=== PATIENT | male | born 1990 | race African-American/Black ===

== ENCOUNTER 2016-10-05 16:58 | Emergency (ER) | payer BC ==
[~2016-10-05 16:58] MED LIST: AMOX875 PO; FLUT50SP EACH NARE; PRED50 PO
[2016-10-05 17:01] VITALS: BP 137/69; PULSE 75; RESP 16; TEMP 98.8
--- NOTE | 2016-10-05 17:07 | PD ---
HPI Chief Complaint: GI Complaint Time Seen by Provider: 17:06 Travel History International Travel<30 days: No Contact w/Intl Traveler<30days: No Traveled to known affect area: No History of Present Illness HPI 25-year-old male came to the emergency room with history of right lower quadrant abdominal pain that has been ongoing for past 3 days. Patient says he' s been vomiting. No history of fever or chills. No history of diarrhea. Patient describes the pain as spasmodic in nature. Vital signs are completely stable. He had an umbilical hernia surgery done when he was a child but other than that no other abdominal surgeries. [facility] Past Medical History Narrative Medical List of his past medical, surgical, social and family history is reviewed from the nursing note. Respiratory: Yes (asthma) Social History Alcohol Use: Yes Tobacco Use: No Substance Use: No Allergies-Medications (Allergen,Severity, Reaction): Coded Allergies: No Known Allergies (Unverified , 10/05/16) Comments No known drug allergies. Reported Meds & Prescriptions Reported Meds & Active Scripts Active No Active Prescriptions or Reported Medications Narrative Medication List of his home medications reviewed from the nursing note. Review of Systems Except as stated in HPI: all other systems reviewed are Neg Physical Exam Narrative GENERAL: Awake, alert, mild distress SKIN: Focused skin assessment warm/dry. HEAD: Atraumatic. Normocephalic. EYES: Pupils equal and round. No scleral icterus. No injection or drainage. ENT: No nasal bleeding or discharge. Mucous membranes pink and moist. NECK: Trachea midline. No JVD. CARDIOVASCULAR: Regular rate and rhythm. No murmur appreciated. RESPIRATORY: No accessory muscle use. Clear to auscultation. Breath sounds equal bilaterally. GASTROINTESTINAL: Abdomen soft, right lower quadrant tenderness on deep palpation, nondistended, normal bowel sounds. Hepatic and splenic margins not palpable. MUSCULOSKELETAL: No obvious deformities. No clubbing. No cyanosis. No edema. NEUROLOGICAL: Awake and alert. No obvious cranial nerve deficits. Motor grossly within normal limits. Normal speech. PSYCHIATRIC: Appropriate mood and affect; insight and judgment normal. Data Data Last Documented VS Vital Signs Date Time Temp Pulse Resp B/P Pulse Ox O2 Delivery O2 Flow Rate FiO2 10/05/16 17:50 99 10/05/16 17:01 98.8 75 16 137/69 Orders Complete Blood Count With Diff (10/05/16 17:26) Comprehensive Metabolic Panel (10/05/16 17:26) Lipase (10/05/16 17:26) Urinalysis - C+S If Indicated (10/05/16:) Iv Access Insert/Monitor (10/05/16 17:) Ecg Monitoring (10/05/16:) Oximetry (10/05/16:) Sodium Chlor 0.9% 1000 Ml Inj (Ns 1000 M (10/05/16:) Sodium Chloride 0.9% Flush (Ns Flush) (10/05/16 17:30) Ketorolac Inj (Toradol Inj) (10/05/16 17:30) C-Reactive Protein (Crp) (10/05/16:) Ondansetron Inj (Zofran Inj) (10/05/16 17:30) Ct Abd/Pel W/O Iv Contrast (10/05/16 ) Labs Laboratory Tests Test 10/05/16 17:35 White Blood Count 6.8 TH/MM3 Red Blood Count 4.26 MIL/MM3 Hemoglobin 12.3 GM/DL Hematocrit 37.8 % Mean Corpuscular Volume 88.8 FL Mean Corpuscular Hemoglobin 28.8 PG Mean Corpuscular Hemoglobin 32.5 % Concent Red Cell Distribution Width 14.0 % Platelet Count 214 TH/MM3 Mean Platelet Volume 9.0 FL Neutrophils (%) (Auto) 69.3 % Lymphocytes (%) (Auto) 17.3 % Monocytes (%) (Auto) 10.6 % Eosinophils (%) (Auto) 2.3 % Basophils (%) (Auto) 0.5 % Neutrophils # (Auto) 4.7 TH/MM3 Lymphocytes # (Auto) 1.2 TH/MM3 Monocytes # (Auto) 0.7 TH/MM3 Eosinophils # (Auto) 0.2 TH/MM3 Basophils # (Auto) 0.0 TH/MM3 CBC Comment DIFF FINAL Differential Comment Urine Color YELLOW Urine Turbidity CLEAR Urine pH 7.0 Urine Specific [place] 1.016 Urine Protein NEG mg/dL Urine Glucose (UA) NEG mg/dL Urine Ketones NEG mg/dL Urine Occult Blood NEG Urine Nitrite NEG Urine Bilirubin NEG Urine Urobilinogen 2.0 MG/DL Urine Leukocyte Esterase TRACE Urine RBC 2 /hpf Urine WBC 3 /hpf Microscopic Urinalysis Comment CULT NOT INDICATED Sodium Level 137 MEQ/L Potassium Level 3.5 MEQ/L Chloride Level 104 MEQ/L Carbon Dioxide Level 28.0 MEQ/L Anion Gap 5 MEQ/L Blood Urea Nitrogen 8 MG/DL Creatinine 0.85 MG/DL Estimat Glomerular Filtration 134 ML/MIN Rate Random Glucose 97 MG/DL Calcium Level 8.3 MG/DL Total Bilirubin 0.2 MG/DL Aspartate Amino Transf 18 U/L (AST/SGOT) Alanine Aminotransferase 22 U/L (ALT/SGPT) Alkaline Phosphatase 89 U/L C-Reactive Protein 4.10 MG/DL Total Protein 7.1 GM/DL Albumin 3.7 GM/DL Lipase 68 U/L [facility] Medical Decision Making Medical Screen Exam Complete: Yes Emergency Medical Condition: Yes Medical Record Reviewed: Yes Differential Diagnosis Acute appendicitis, acute diverticulitis, mesenteric adenitis, terminal ileitis Narrative Course 6:08 PM I have ordered blood test for this patient including CRP. Based on the WBC count and CRP all decide whether to do a CT scan or not given the fact that this pain has been going on for past 3 days and vital signs are completely normal. My suspicion for acute appendicitis is quite low. 6:47 PM he CRP significantly elevated in spite of his CBC being normal.. I'll order a CT scan of the abdomen and pelvis. 7:[address] scan report reads as normal appearing abdomen and pelvis. Patient will be discharged home. Procedures EKG Prior to Arrival: No Diagnosis Primary Impression: Abdominal pain Qualified Code: R10.31 - Right lower quadrant abdominal pain Referrals: Primary Care Physician Additional Instructions: Take Tylenol/ibuprofen/Advil/Motrin [id number] for the pain. Follow-up with your primary care. Return to the ER if the condition worsens or any other new concerns. Med/Other Pt SpecificInfo: No Change to Meds Scripts No Active Prescriptions or Reported Meds Disposition: DISCHARGE HOME Condition: Stable Ga Lowry MD Oct 05, 2016 17:07
[2016-10-05] MEDS ORDERED: SODIUM CHLOR 0.9% 1000 ML INJ 1,000 ML IV SCH (17:26)
[2016-10-05] MEDS ORDERED: KETOROLAC TROMETHAMINE 30 MG/ML (IVP) VIAL IVP ONE (17:30)
[2016-10-05] MEDS ORDERED: SODIUM CHLORIDE 0.9% FLUSH 10 ML FLUSH IV FLUSH PRN (17:30)
[2016-10-05] MEDS ORDERED: ONDANSETRON HCL 4 MG/2 ML VIAL IV PUSH ONE (17:30)
[2016-10-05 17:50] VITALS: O2SAT 99
[2016-10-05 18:13] LABS: AUTOMATED NEUTROPHIL # 4.7 TH/MM3 (1.8-7.7); BASOPHIL % 0.5 % (0.0-2.0); EOSINOPHIL # 0.2 TH/MM3 (0-0.4); EOSINOPHIL % 2.3 % (0.0-4.0); HEMATOCRIT 37.8 % (39.0-51.0); HEMO FLAGS DIFF FINAL; LYMPH % 17.3 % (9.0-44.0); LYMPHOCYTE # 1.2 TH/MM3 (1.0-4.8); MEAN CELL VOLUME 88.8 FL (80.0-100.0); MEAN CORPUSCULAR HEMOGLOBIN 28.8 PG (27.0-34.0); MEAN CORPUSCULAR HGB CONC 32.5 % (32.0-36.0); MONO % 10.6 % (0.0-8.0); NEUT % 69.3 % (16.0-70.0); PLATELET COUNT 214 TH/MM3 (150-450); RED BLOOD COUNT 4.26 MIL/MM3 (4.50-5.90); WHITE BLOOD COUNT 6.8 TH/MM3 (4.0-11.0)
[2016-10-05 18:15] LABS: BLOOD, URINE NEG (NEG); GLUCOSE,URINE NEG (NEG); KETONE, URINE NEG (NEG); NITRITE,URINE NEG (NEG); URINE COLOR YELLOW (YELLW/STRAW)
[2016-10-05 18:16] LABS: COMMENT (UR) CULT NOT INDICATED; CULTURE IF INDICATED CULT NOT INDICATED
[2016-10-05 18:33] LABS: ANION GAP 5 MEQ/L (5-15); AST (GOT) 18 U/L (15-37); BLOOD UREA NITROGEN 8 MG/DL (7-18); CHLORIDE 104 MEQ/L (98-107); GLOMERULAR FILTRATION RATE 134 ML/MIN (>89); POTASSIUM 3.5 MEQ/L (3.5-5.1); SODIUM (NA) 137 MEQ/L (136-145)
[2016-10-05 18:35] LABS: ALT (GPT) 22 U/L (12-78)
[2016-10-05 18:37] LABS: ALKALINE PHOSPHATASE 89 U/L (45-117); TOTAL BILIRUBIN ADULT 0.2 MG/DL (0.2-1.0)
--- NOTE | 2016-10-05 19:28 | RADRPT ---
EXAM DATE/TIME: 10/05/2016 19:14 [facility] COMPARISON: No previous studies available for comparison. INDICATIONS : Lower abdomen pain, vomiting and constipation for two days. ORAL CONTRAST: No oral contrast ingested. RADIATION DOSE: 9.96 CTDIvol (mGy) MEDICAL HISTORY : None SURGICAL HISTORY : None. ENCOUNTER: Initial ACUITY: 2 days PAIN SCALE: 7/10 LOCATION: Bilateral lower quadrant TECHNIQUE: Volumetric scanning of the abdomen and pelvis was performed. Using automated exposure control and ad justment of the mA and/or kV according to patient size, radiation dose was kept as low as reasonably achievable to obtain optimal diagnostic quality images. DICOM format image data is available electro nically for review and comparison. FINDINGS: LOWER LUNGS: The visualized lower lungs are clear. LIVER: Homogeneous density without lesion. There is no dilation of the biliary tree. No calcified gallston es. SPLEEN: Normal size without lesion. PANCREAS: Within normal limits. KIDNEYS: Normal in size and shape. There is no mass, stone, or hydronephrosis. ADRENAL GLANDS: Within normal limits. VASCULAR: There is no aortic aneurysm. BOWEL/MESENTERY: The stomach, small bowel, and colon demonstrate no acute abnormality. There is no free intraperitone al air or fluid. ABDOMINAL WALL: Within normal limits. RETROPERITONEUM: There is no lymphadenopathy. BLADDER: No wall thickening or mass. REPRODUCTIVE: Within normal limits. INGUINAL: There is no lymphadenopathy or hernia. MUSCULOSKELETAL: Within normal limits for patient age. CONCLUSION: Normal examination. Walter Negrete MD on October 05, 2016 at 19:21 Board Certified Radiologist. This report was verified electronically.
== END 2016-10-05 20:43 | disposition home or self-care (01) ==
LOC: NEPD 16:58
DX: R10.31 Right lower quadrant pain (principal); R11.10 Vomiting, unspecified; Z87.09 Personal history of other diseases of the respiratory system
CPT/HCPCS: 74176; 80053; 81001; 83690; 85025; 86140; 96361; 96374; 96375; 99285; J1885; J2405; J7030

== ENCOUNTER → 2017-04-23 | Outpatient (CLI) | payer BC ==
[2017-04-24 15:44] LABS: APPEARANCE Normal; MIDPIECE ABNORMAL 9.5 %; MOTILE/EJACULATE 11.9 x10(6) (>=9.0); MOTILE/mL 8.5 x10(6) (>=6.0); MOTILITY 24 % (>=40); SEMEN VOLUME 1.4 mL (>=1.5); SPERM/ML 35.5 x10(6) (>=15.0); TAIL ABNORMAL 57.5 %
== END ==
LOC: CLAB 13:11
DX: Z31.41 Encounter for fertility testing (principal)
CPT/HCPCS: 89322

== ENCOUNTER 2017-06-09 18:20 | Emergency (ER) | payer SELFPAY ==
[2017-06-09 18:41] VITALS: BP 110/75; PULSE 65; RESP 18; TEMP 98.2; O2SAT 100
--- NOTE | 2017-06-09 20:42 | PD ---
HPI Chief Complaint: Exposure to Blood/Body Fluids Time Seen by Provider: 18:41 Travel History International Travel<30 days: No Contact w/Intl Traveler<30days: No Traveled to known affect area: No History of Present Illness HPI 26-year-old male with no significant medical history presents emergency department for evaluation of a needlestick to his finger. Patient was taken out the trash when he picked up another bag and was stuck with a hypodermic needle. It was from his neighbors house. He went and spoke with them. She is an elderly woman who is diabetic. States he did not ask about HIV or hepatitis C. He is up-to-date on his tetanus vaccination. He is uncertain about his hepatitis B series. Denies any pain. Has no other immunocompromise state that is where. PFSH Past Medical History Medical History: Denies Significant Hx Respiratory: Yes (asthma) Social History Alcohol Use: Yes Tobacco Use: Yes Substance Use: No Allergies-Medications (Allergen,Severity, Reaction): Coded Allergies: No Known Allergies (Unverified , 10/05/16) Reported Meds & Prescriptions Reported Meds & Active Scripts Active No Active Prescriptions or Reported Medications Review of Systems Except as stated in HPI: all other systems reviewed are Neg Physical Exam Narrative Well-nourished male patient in no acute distress. Even respirations. Normal heart rate. No obvious deformities. Speaks clearly moves all extremities freely. Data Data Last Documented VS Vital Signs Date Time Temp Pulse Resp B/P (MAP) Pulse Ox O2 Delivery O2 Flow Rate FiO2 318 18:41 98.2 65 18 110/75 (87) 100 MDM Medical Decision Making Medical Screen Exam Complete: Yes Emergency Medical Condition: Yes Medical Record Reviewed: Yes Differential Diagnosis Puncture wound versus exposure high-risk versus low risk versus normal exam Narrative Course 26-year-old male presents to emergency department for evaluation following a needle stick that occurred in his been prescribed which. Patient appears nontoxic. Her to that placement, patient chooses to leave AMA: The risks of leaving against medical advice without further evaluation treatment were discussed with the patient. These risks include cardiac dysfunction, cardiac dysrhythmia, possible heart attack, possible stroke or . The patient indicated understanding of these risks and appeared to have the capacity to make this decision. Diagnosis Primary Impression: Needlestick injury of finger Scripts No Active Prescriptions or Reported Meds Disposition: 07 AGAINST MEDICAL ADVICE Condition: Stable Pino,Lauren WATCH CASER Jun 09, 2017 20:42
== END 2017-06-09 20:05 | disposition left against medical advice (07) ==
LOC: NED 18:20
DX: S61.239A Puncture wound without foreign body of unspecified finger without damage to nail, initial encounter (principal); W46.1XXA Contact with contaminated hypodermic needle, initial encounter; Z72.0 Tobacco use; Z53.29 Procedure and treatment not carried out because of patient's decision for other reasons
CPT/HCPCS: 99281

== ENCOUNTER 2017-06-27 13:01 | Emergency (ER) | payer SELFPAY ==
[~2017-06-27] VITALS: Ht 172.7 cm; Wt 75.0 kg
[2017-06-27 13:16] VITALS: BP 140/61; PULSE 80; RESP 18; TEMP 98.5; O2SAT 99
== END 2017-06-27 18:00 | disposition left against medical advice (07) ==
LOC: NED 17:55
DX: R10.9 Unspecified abdominal pain (principal); Z53.21 Procedure and treatment not carried out due to patient leaving prior to being seen by health care provider
CPT/HCPCS: 99281

== ENCOUNTER 2017-06-30 11:12 | Emergency (ER) | payer BC ==
[~2017-06-30] VITALS: Ht 172.7 cm; Wt 74.0 kg
[2017-06-30] MEDS ORDERED: IOHEXOL 350 MG/ML 10 ML VIAL (for RAD DIAG) IVCONTRAST ONE (11:13)
[2017-06-30 12:05] VITALS: BP 122/59; PULSE 68; RESP 20; TEMP 98.7; O2SAT 98
[2017-06-30 12:35] LABS: AUTOMATED NEUTROPHIL # 3.5 TH/MM3 (1.8-7.7); BASOPHIL % 0.5 % (0.0-2.0); EOSINOPHIL # 0.2 TH/MM3 (0-0.4); EOSINOPHIL % 3.8 % (0.0-4.0); HEMATOCRIT 37.8 % (39.0-51.0); HEMOGLOBIN 12.9 GM/DL (13.0-17.0); LYMPH % 24.6 % (9.0-44.0); LYMPHOCYTE # 1.4 TH/MM3 (1.0-4.8); MEAN CELL VOLUME 88.5 FL (80.0-100.0); MEAN CORPUSCULAR HEMOGLOBIN 30.1 PG (27.0-34.0); MONO % 8.4 % (0.0-8.0); MONOCYTE # 0.5 TH/MM3 (0-0.9); NEUT % 62.7 % (16.0-70.0); PLATELET COUNT 306 TH/MM3 (150-450); RED BLOOD COUNT 4.27 MIL/MM3 (4.50-5.90); RED CELL DISTRIBUTION WIDTH 13.3 % (11.6-17.2); WHITE BLOOD COUNT 5.6 TH/MM3 (4.0-11.0)
[2017-06-30 12:44] LABS: BILIRUBIN, URINE NEG (NEG); BLOOD, URINE TRACE (NEG); GLUCOSE,URINE NEG (NEG); KETONE, URINE NEG (NEG); MUCUS URINE FEW /lpf (OCC); NITRITE,URINE NEG (NEG); SQUAMOUS EPITHELIAL CELL URINE <1 /hpf (0-5); URINE COLOR YELLOW (YELLW/STRAW); URINE LEUKOCYTE ESTERASE NEG (NEG)
[2017-06-30 13:01] LABS: ALKALINE PHOSPHATASE 91 U/L (45-117); ALT (GPT) 24 U/L (12-78); TOTAL BILIRUBIN ADULT 0.2 MG/DL (0.2-1.0)
[2017-06-30 13:03] LABS: ALBUMIN 3.8 GM/DL (3.4-5.0); AST (GOT) 9 U/L (15-37); BICARBONATE 28.2 MEQ/L (21.0-32.0); BLOOD UREA NITROGEN 9 MG/DL (7-18); CALCIUM 8.9 MG/DL (8.5-10.1); CHLORIDE 104 MEQ/L (98-107); GLOMERULAR FILTRATION RATE 143 ML/MIN (>89); GLUCOSE,RANDOM 82 MG/DL (74-106); SODIUM (NA) 139 MEQ/L (136-145)
[2017-06-30] MEDS ORDERED: ONDANSETRON HCL 4 MG/2 ML VIAL IV PUSH ONE (14:00)
[2017-06-30] MEDS ORDERED: SODIUM CHLOR 0.9% 1000 ML INJ 1,000 ML IV ONE (14:00)
[2017-06-30] MEDS ORDERED: KETOROLAC TROMETHAMINE 30 MG/ML (IVP) VIAL IV PUSH ONE (14:00)
--- NOTE | 2017-06-30 14:02 | PD ---
HPI Chief Complaint: Abdominal Pain Time Seen by Provider: 13:54 Travel History International Travel<30 days: No Contact w/Intl Traveler<30days: No Traveled to known affect area: No History of Present Illness HPI Patient is a 26-year-old male with a week's history of nausea vomiting culminating in some epigastric abdominal pain. Patient states it is all very mild but it is not getting any better. He is stating that he is able to tolerate clear liquids but is still trying to eat solid foods and this seems to upset his stomach more. Denies any chest pain shortness of breath denies any diarrhea or blood in the stool or blood in the emesis. He denies any alcohol ingestion. Symptoms are mild, for the past week, constant, worsened with solid food. PFSH Past Medical History Respiratory: Yes (asthma) Social History Alcohol Use: Yes Tobacco Use: Yes Substance Use: No Allergies-Medications (Allergen,Severity, Reaction): Coded Allergies: No Known Allergies (Unverified Allergy, Unknown, 06/30/17) Reported Meds & Prescriptions Reported Meds & Active Scripts Active Bentyl (Dicyclomine HCl) 10 Mg Cap 10 Mg PO TID PRN Zofran (Ondansetron HCl) 4 Mg Tab 4 Mg PO Q6HR PRN Review of Systems Except as stated in HPI: all other systems reviewed are Neg Physical Exam Narrative GENERAL: Well-developed well-nourished in no obvious distress. Appears quite well. SKIN: Focused skin assessment warm/dry. HEAD: Atraumatic. Normocephalic. EYES: Pupils equal and round. No scleral icterus. No injection or drainage. ENT: No nasal bleeding or discharge. Mucous membranes pink and moist. NECK: Trachea midline. No JVD. CARDIOVASCULAR: Regular rate and rhythm. No murmur appreciated. RESPIRATORY: No accessory muscle use. Clear to auscultation. Breath sounds equal bilaterally. GASTROINTESTINAL: Abdomen soft, non-tender, nondistended. Hepatic and splenic margins not palpable. No rebound no percussive tenderness MUSCULOSKELETAL: No obvious deformities. No clubbing. No cyanosis. No edema. NEUROLOGICAL: Awake and alert. No obvious cranial nerve deficits. Motor grossly within normal limits. Normal speech. PSYCHIATRIC: Appropriate mood and affect; insight and judgment normal. Data Data Last Documented VS Vital Signs Date Time Temp Pulse Resp B/P (MAP) Pulse Ox O2 Delivery O2 Flow Rate FiO2 06/30/17 16:42 77 17 134/78 (96) 100 06/30/17 14:09 Room Air 06/30/17 12:05 98.7 Orders Orders Complete Blood Count With Diff (06/30/17 12:06) Comprehensive Metabolic Panel (06/30/17 12:06) Urinalysis - C+S If Indicated (06/30/17 12:06) Iv Access Insert/Monitor (06/30/17 12:06) Oxygen Administration (06/30/17 12:06) Oximetry (06/30/17 12:06) Lipase (06/30/17 12:06) Ct Abd/Pel W Iv Contrast(Rout) (06/30/17 ) Sodium Chlor 0.9% 1000 Ml Inj (Ns 1000 M (06/30/17 14:00) Ketorolac Inj (Toradol Inj) (06/30/17 14:00) Ondansetron Inj (Zofran Inj) (06/30/17 14:00) Iohexol 350 Inj (Omnipaque 350 Inj) (06/30/17 11:13) Ed Discharge Order (06/30/17 16:30) Labs Laboratory Tests Test 06/30/17 12:15 White Blood Count 5.6 TH/MM3 Red Blood Count 4.27 MIL/MM3 Hemoglobin 12.9 GM/DL Hematocrit 37.8 % Mean Corpuscular Volume 88.5 FL Mean Corpuscular Hemoglobin 30.1 PG Mean Corpuscular Hemoglobin Concent 34.0 % Red Cell Distribution Width 13.3 % Platelet Count 306 TH/MM3 Mean Platelet Volume 8.0 FL Neutrophils (%) (Auto) 62.7 % Lymphocytes (%) (Auto) 24.6 % Monocytes (%) (Auto) 8.4 % Eosinophils (%) (Auto) 3.8 % Basophils (%) (Auto) 0.5 % Neutrophils # (Auto) 3.5 TH/MM3 Lymphocytes # (Auto) 1.4 TH/MM3 Monocytes # (Auto) 0.5 TH/MM3 Eosinophils # (Auto) 0.2 TH/MM3 Basophils # (Auto) 0.0 TH/MM3 CBC Comment DIFF FINAL Differential Comment Urine Color YELLOW Urine Turbidity CLEAR Urine pH 6.0 Urine Specific [place] 1.020 Urine Protein NEG mg/dL Urine Glucose (UA) NEG mg/dL Urine Ketones NEG mg/dL Urine Occult Blood TRACE Urine Nitrite NEG Urine Bilirubin NEG Urine Urobilinogen 2.0 MG/DL Urine Leukocyte Esterase NEG Urine RBC 1 /hpf Urine WBC 3 /hpf Urine Squamous Epithelial Cells <1 /hpf Urine Mucus FEW /lpf Microscopic Urinalysis Comment CULT NOT INDICATED Blood Urea Nitrogen 9 MG/DL Creatinine 0.80 MG/DL Random Glucose 82 MG/DL Total Protein 8.0 GM/DL Albumin 3.8 GM/DL Calcium Level 8.9 MG/DL Alkaline Phosphatase 91 U/L Aspartate Amino Transf (AST/SGOT) 9 U/L Alanine Aminotransferase (ALT/SGPT) 24 U/L Total Bilirubin 0.2 MG/DL Sodium Level 139 MEQ/L Potassium Level 4.0 MEQ/L Chloride Level 104 MEQ/L Carbon Dioxide Level 28.2 MEQ/L Anion Gap 7 MEQ/L Estimat Glomerular Filtration Rate 143 ML/MIN Lipase 1791 U/L MDM Medical Decision Making Medical Screen Exam Complete: Yes Emergency Medical Condition: Yes Differential Diagnosis Pancreatitis, gastritis, gastroenteritis, cholecystitis, acute abdomen highly unlikely. Narrative Course Patient was roomed in the emergency department, his labs are significant for an elevated lipase at 1791. Otherwise his chemistry and hematology are fairly unremarkable. UA negative. I discussed with him the elevated lipase and recommended for him for CAT scan to exclude secondary causes. He appears quite well and has been tolerating p.o. liquids at home and if the CT is negative can be discharged safely in my opinion. Last 24 hours Impressions Abdomen/Pelvis CT 06/30/17 0000 Signed Impressions: Service Date/Time: Friday, June 30, 2017 15:45 - CONCLUSION: 1. Nonspecific , nonobstructive bowel gas pattern which may represent gastroenteritis and/or ileus. No oral contrast was given. 2. Apparent normal appendix. 3. Unremarkable gallbladder. Ronaldo Scott MD Discussed with the patient the need for clear liquid diet for the next 36 hours followed by BRAT diet followed by introduction of solid food at a slow pace. I discussed with him that he needs to follow-up with primary care physician for additional checkup and discussed with him return to ED criteria abstinence from alcohol. He verbalized understanding and agreement. He is stable for discharge at this time. Diagnosis Primary Impression: Pancreatitis Med/Other Pt SpecificInfo: Prescription(s) given Scripts Dicyclomine (Bentyl) 10 Mg Cap 10 MG PO TID Y for ABDOMINAL CRAMPING, #20 CAP 0 Refills Prov: Aldair Lora MD 06/30/17 Ondansetron (Zofran) 4 Mg Tab 4 MG PO Q6HR Y for NAUSEA OR VOMITING, #20 TAB 0 Refills Prov: Aldair Lora MD 06/30/17 Disposition: 01 DISCHARGE HOME Condition: Stable Aldair Lora MD Jun 30, 2017 14:02
[2017-06-30 14:09] VITALS: O2SAT 100
--- NOTE | 2017-06-30 16:00 | RADRPT ---
EXAM DATE/TIME: 06/30/2017 15:45 [facility] COMPARISON: No previous studies available for comparison. INDICATIONS : Patient complains of epigastric pain one week. IV CONTRAST: 95 cc Omnipaque 350 (iohexol) IV ORAL CONTRAST: No oral contrast ingested. RADIATION DOSE: 6.64 CTDIvol (mGy) MEDICAL HISTORY : None SURGICAL HISTORY : None. ENCOUNTER: Initial ACUITY: 1 week PAIN SCALE: 7/10 LOCATION: upper quadrant abdomen TECHNIQUE: Volumetric scanning of the abdomen and pelvis was performed. Using automated exposure control and ad justment of the mA and/or kV according to patient size, radiation dose was kept as low as reasonably achievable to obtain optimal diagnostic quality images. DICOM format image data is available electro nically for review and comparison. FINDINGS: LOWER LUNGS: The visualized lower lungs are clear. LIVER: Homogeneous density without lesion. There is no dilation of the biliary tree. No calcified gallston es. SPLEEN: Normal size without lesion. PANCREAS: Within normal limits. KIDNEYS: Normal in size and shape. There is no mass, stone or hydronephrosis. ADRENAL GLANDS: Within normal limits. VASCULAR: There is no aortic aneurysm. BOWEL/MESENTERY: No oral contrast was given limiting the sensitivity of the exam. There are multiple loops of nondilat ed air containing small bowel present with several small air-fluid levels. Gas and stool noted segmen tally in the colon. There is no free intraperitoneal air or fluid. There is an apparent normal append ix. ABDOMINAL WALL: Within normal limits. RETROPERITONEUM: There is no lymphadenopathy. BLADDER: No wall thickening or mass. REPRODUCTIVE: Within normal limits. INGUINAL: There is no lymphadenopathy or hernia. MUSCULOSKELETAL: Within normal limits for patient age. CONCLUSION: 1. Nonspecific, nonobstructive bowel gas pattern which may represent gastroenteritis and/or ileus. No oral contrast was given. 2. Apparent normal appendix. 3. Unremarkable gallbladder. Ronaldo Scott MD on June 30, 2017 at 15:55 Board Certified Radiologist. This report was verified electronically.
[2017-06-30] MEDS ORDERED: ZOFR4TAB PO (16:30)
[2017-06-30] MEDS ORDERED: DICY10 PO (16:33)
[2017-06-30 16:42] VITALS: BP 134/78
== END 2017-06-30 16:50 | disposition home or self-care (01) ==
LOC: NEPD 11:12
DX: K85.90 Acute pancreatitis without necrosis or infection, unspecified (principal); Z72.0 Tobacco use
CPT/HCPCS: 74177; 80053; 81001; 83690; 85025; 96361; 96374; 96375; 99284; J1885; J2405; J7030; Q9967